=== PATIENT | male | born 1985 | race Asian ===

== ENCOUNTER 2019-01-19 14:39 | Emergency (ER) | payer OTHER ==
[2019-01-19 15:24] VITALS: BP 100/66
--- NOTE | 2019-01-19 16:43 | UC ---
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 No leg weakness, urinary incontinence, bowel incontinence. No paresthesias. - History of Current Complaint Chief Complaint: UCBackPain Stated Complaint: BACK PAIN Time Seen by Provider: 01/19/19 16:32 Hx Obtained From: Patient Onset/Duration: Sudden Onset, Lasting Days - 5 Timing: Constant Severity Initially: Moderate Severity Currently: Moderate Pain Intensity: 2 Character: Aching, Spasmodic Aggravating Factor(s): Movement, Bending, Walking, Cough Alleviating Factor(s): Rest, Position - most comfortable forward seated or on his back. Associated Signs And Symptoms: Negative: Weakness, Numbness - Risk Factors AAA Risk Factors: Negative TAD Risk Factors: Negative Cauda Equina Risk Factors: Negative Epidural Abscess Risk Factors: Negative - Allergies/Home Medications Allergies/Adverse Reactions: Allergies Allergy/AdvReac Type Severity Reaction Status Date / Time No Known Allergies Allergy Verified 01/19/19 15:19 PMH/Surg Hx/FS Hx/Imm Hx Previously Healthy: Yes - Surgical History Surgical History: None - Family History Known Family History: Positive: Non-Contributory - Social History Occupation: Employed Full-time Lives: With Family Alcohol Use: None Substance Use Type: None Smoking Status (MU): Never Smoked Tobacco Review of Systems All Other Systems Reviewed And Are Negative: Yes Constitutional: Positive: Negative Skin: Positive: Negative Eyes: Positive: Negative ENT: Positive: Negative Respiratory: Positive: Negative Cardiovascular: Positive: Negative Gastrointestinal: Positive: Negative Genitourinary: Positive: Negative Motor: Positive: Negative Neurovascular: Positive: Negative Musculoskeletal: Positive: Myalgia Neurological: Positive: Negative Psychological: Positive: Negative Is Patient Immunocompromised?: No Physical Exam Triage Information Reviewed: Yes Appearance: Well-Appearing, Pain Distress - moderate Vital Signs: Initial Vital Signs Temp 99.5 F 01/19/19 15:20 Pulse 76 01/19/19 15:20 Resp 18 01/19/19 15:20 BP 100/66 01/19/19 15:20 Pulse Ox 96 01/19/19 15:20 Eye Exam: Normal ENT: Positive: Pharynx normal Dental Exam: Normal Neck exam: Normal Neck: Positive: Supple, Nontender, No Lymphadenopathy Respiratory: Positive: Lungs clear, Normal breath sounds Cardiovascular: Positive: RRR, No Murmur Abdominal Exam: Normal Abdomen Description: Positive: Nontender, No Organomegaly Musculoskeletal Exam: Other - standing forward flexed. No spinal TTP, tender right low paraspinal muscles. Musculoskeletal: Positive: Strength Intact, No Edema, ROM Limited @ - lumbar spine, Other: - SLR to 80 degrees bilaterally. Neurological: Positive: Alert, Muscle Tone Normal Skin Exam: Normal Back Pain Course/Dx - Course Course Of Treatment: NSAID's, muscle relaxants, and PT referral. - Differential Dx/Diagnosis Differential Diagnosis/HQI/PQRI: Cauda Equina Syndrome, Herniated Disc, Strain, Sprain Provider Diagnosis: Low back strain Discharge ED - Sign-Out/Discharge Documenting (check all that apply): Patient Departure All imaging exams completed and their final reports reviewed: No Studies - Discharge Plan Condition: Stable Disposition: HOME Prescriptions: Cyclobenzaprine TAB* [Flexeril 10 MG TAB*] 10 mg PO BID PRN #20 tab PRN Reason: Spasms - Back Naproxen [Naproxen 500 mg tab] 500 mg PO BID #30 tablet Patient Education Materials: Low Back Strain (ED) Referrals: Hernán Velasquez, HISTORY CARD CLERK [Primary Care Provider] - Additional Instructions: Begin use of naproxen for relief of pain, taking it with food. Stop if you develop stomach upset. Use muscle relaxant at night--it can cause sedation, but will help to improve sleep. You have a referral for physical therapy. Follow up with Hernán Velasquez in 1 week f pain is not improving. - Billing Disposition and Condition Condition: STABLE Disposition: Home
== END 2019-01-19 17:19 | disposition home or self-care (01) ==
LOC: UCEAST 14:39
DX: S39.012A Strain of muscle, fascia and tendon of lower back, initial encounter (principal); X58.XXXA Exposure to other specified factors, initial encounter; Y92.9 Unspecified place or not applicable
CPT/HCPCS: 99202; G0463